=== PATIENT | male | born 1960 | race Caucasian/White ===

== ENCOUNTER → 2021-12-04 | Day surgery (SDC) | payer MEDICARE ==
[~2021-12-04] MED LIST: AMITRIPTYLINE H75 MG PO; ATORVASTATIN CA40 MG PO; IBUPROFEN800 MG PO; LATUDA120 MG PO; METOPROLOL SUCC25 MG PO; ZESTRIL20 MG PO; ZOLOFT100 MG PO; ZYPREXA20 MG PO
== END | disposition home or self-care (01) ==
LOC: OR 06:58
DX: Z12.11 Encounter for screening for malignant neoplasm of colon (principal); N40.0 Benign prostatic hyperplasia without lower urinary tract symptoms; E78.5 Hyperlipidemia, unspecified; I10 Essential (primary) hypertension; Z79.899 Other long term (current) drug therapy
CPT/HCPCS: J2704